=== PATIENT | male | born 1965 | race Caucasian/White ===

== ENCOUNTER 2020-05-04 05:53 | Observation (INO) ==
[2020-05-04] MEDS ORDERED: Isovue-370 500 ML BOTTLE IVP ONE (06:12)
[2020-05-04 06:34] LABS: INR 1.2
[2020-05-04 06:37] LABS: Activated Partial Thrombo Time 29.8 Seconds (26.0-36.0)
[2020-05-04 06:46] LABS: BUN/Creatinine Ratio 14 (6-26); Blood Urea Nitrogen 17 mg/dL (6-20); Calcium 9.6 mg/dL (8.6-10.3); Carbon Dioxide 21 mEq/L (23-29); Chloride 107 mEq/L (98-107); Glucose 134 mg/dL (70-105); Osmolality,Calculated 290 (280-300); Potassium 3.7 mEq/L (3.5-5.1); Sodium 138 mEq/L (136-145); eGFR For African Americans > 60 (> 60); eGFR For Non-African Americans > 60 (> 60)
[2020-05-04 06:48] LABS: Alanine Aminotransferase 23 Units/L (7-52); Albumin 3.2 g/dL (3.5-5.7); Albumin/Globulin Ratio 0.8 (1.1-2.2); Alkaline Phosphatase 157 Units/L (34-104); Aspartate Amino Transferase 42 Units/L (13-39); Bilirubin,Indirect 1.8 mg/dL (0.0-1.0); Bilirubin,Total 2.8 mg/dL (0.3-1.0); Ethanol < 10 mg/dL (Less than 10); Globulin 4.1 g/dL (2.4-3.5); Lipase 79 Units/L (11-82); Red Cell Distribution Width 15.6 % (11.5-14.5); Total Protein 7.3 g/dL (6.4-8.9); Troponin I < 0.03 ng/mL (< 0.04)
[2020-05-04 06:50] LABS: Basophils % 0.5 %; Eosinophils # 0.2 K/mcL (0.0-0.6); Eosinophils % 3.3 %; Hematocrit 34.1 % (37.5-50.1); Immature Granulocytes % 0.3 % (0-4); Immature Platelets 1.1 % (1.1-6.1); Lymphocytes # 1.6 K/mcL (0.6-4.6); Lymphocytes % 23.5 %; Mean Corpuscular HGB Conc 32.3 g/dL (31.6-35.5); Monocytes # 0.7 K/mcL (0.0-1.3); Neutrophils # 4.1 K/mcL (1.6-8.9); Platelet Count 77 K/mcL (140-400); Red Blood Count 3.79 M/mcL (4.19-5.50); Segmented Neutrophils % 61.4 %; White Blood Count 6.6 K/mcL (4.3-11.1)
[2020-05-04] MEDS ORDERED: Aspirin 325 MG TABLET PO ONE (06:56)
[2020-05-04] MEDS ORDERED: cefTRIAXone 1,000 MG in 0.9 % Sodium Chloride Mini Bag 100 ML IVPB ONE (06:58)
[2020-05-04] MEDS ORDERED: Azithromycin 500 MG in 0.9 % Sodium Chloride 250 ML IVPB ONE (06:58)
[2020-05-04] MEDS ORDERED: Dextrose Gel 15 GM/37.5 ML TUBE PO PRN ×2 (08:06)
[2020-05-04] MEDS ORDERED: D5% in Water 1,000 ML IVC PRN (08:06)
[2020-05-04] MEDS ORDERED: Naloxone 0.4 MG/ML INJ IVP PRN (08:06)
[2020-05-04] MEDS ORDERED: *HR* Dextrose 50 % in Water (Vial) 50 ML VIAL IVP PRN (08:06)
[2020-05-04] MEDS ORDERED: Acetaminophen 325 MG TABLET PO PRN (08:06)
[2020-05-04] MEDS ORDERED: Ondansetron 4 MG/2 ML VIAL IVP PRN (08:06)
[2020-05-04] MEDS ORDERED: Perflutren Lipid Microsphere 1.3 ML in 0.9 % Sodium Chloride 8.7 ML IVP PRN (08:13)
[2020-05-04] MEDS ORDERED: NON-FORMULARY MEDICATION 1 EACH EACH (Amlodipine Besylate 10 MG Tablet) PO SCH (09:00)
[2020-05-04 09:11] LABS: Amphetamine Screen,Urine Negative ng/mL (Cutoff=1000); Bacteria,Urine Few per hpf (None-Few); Barbiturate Screen,Urine Negative ng/mL (Cutoff=200); Benzodiazepines Screen,Urine Negative ng/mL (Cutoff=200); Bilirubin,Urine Negative (Negative); Blood,Urine Trace (Negative); Cannabinoid Screen,Urine Negative ng/mL (Cutoff = 50); Clarity,Urine Clear (Clear); Cocaine Screen,Urine Negative ng/mL (Cutoff= 300); Color,Urine Light-Yellow (Yellow); Glucose,Urine (UA) >=1000 mg/dL (Normal); Ketones,Urine Negative (Negative); Leukocyte Esterase,Urine Negative (Negative); Nitrite,Urine Negative (Negative); Opiate Screen,Urine Negative ng/mL (Cutoff=300); PH,Urine 7.5 pH Units (5.0-8.0); Phencyclidine Screen,Urine Negative ng/mL (Cutoff=25); Protein,Urine Trace mg/dL (Neg-Trace); Specific Gravity,Urine > 1.030 (1.010-1.025); Urobilinogen,Urine Normal (Normal)
[2020-05-04] MEDS: lisinopriL 20 MG TABLET PO SCH (11:56)
[2020-05-04] MEDS: Metoprolol XL (24 HR) Succ 50 MG TAB.ER.24H PO SCH (11:56)
[2020-05-04] MEDS: Lactulose Oral Soln 20 GM/30 ML UDC PO SCH ×4 (11:56→20:38)
[2020-05-04] MEDS: amLODIPine 5 MG TABLET PO SCH (11:57)
[2020-05-04] MEDS: Insulin LISPRO 300 UNITS/3 ML VIAL SUBQ SCH ×2 (11:59→15:51)
[2020-05-04 15:40] LABS: % Iron Saturation 25 % (20-55); Iron 94 mcg/dL (65-175); Transferrin 267 mg/dL (203-362)
[2020-05-04 15:57] LABS: Ferritin 51 ng/mL (20-250); Hepatitis B Surface Antigen Nonreactive (Nonreactive)
[2020-05-04 16:26] LABS: Hepatitis B Core IgM Nonreactive (Nonreactive); Hepatitis C Virus Antibody Nonreactive (Nonreactive)
[2020-05-04 22:32] LABS: Hepatitis A Antibody IgM Nonreactive (Nonreactive)
[2020-05-05 02:20] LABS: Basophils % 0.6 %; Monocytes % 13.2 %; Red Blood Count 3.34 M/mcL (4.19-5.50); Red Cell Distribution Width 15.9 % (11.5-14.5)
[2020-05-05 02:22] LABS: Eosinophils # 0.2 K/mcL (0.0-0.6); Eosinophils % 3.1 %; Hematocrit 29.5 % (37.5-50.1); Hemoglobin 9.8 g/dL (12.9-16.9); Immature Granulocytes % 0.4 % (0-4); Immature Platelets 1.1 % (1.1-6.1); Lymphocytes # 1.2 K/mcL (0.6-4.6); Lymphocytes % 22.2 %; Mean Corpuscular HGB Conc 33.2 g/dL (31.6-35.5); Mean Corpuscular Hemoglobin 29.3 pg (28.0-33.3); Mean Corpuscular Volume 88.3 fL (83.0-100.0); Mean Platelet Volume 9.3 fL (9.4-12.4); Monocytes # 0.7 K/mcL (0.0-1.3); Neutrophils # 3.2 K/mcL (1.6-8.9); Segmented Neutrophils % 60.5 %; White Blood Count 5.2 K/mcL (4.3-11.1)
[2020-05-05 02:25] LABS: Platelet Count 66 K/mcL (140-400)
[2020-05-05 02:39] LABS: BUN/Creatinine Ratio 16 (6-26); Blood Urea Nitrogen 19 mg/dL (6-20); Carbon Dioxide 20 mEq/L (23-29); Chloride 112 mEq/L (98-107); Chol/HDL Ratio 3.6 (0-4.9); Cholesterol 135 mg/dL (< 200); Glucose 105 mg/dL (70-105); HDL Cholesterol 37 mg/dL (40-59); LDL Cholesterol,Calculated 75 mg/dL (< 100); Magnesium 2.2 mg/dL (1.6-2.6); Osmolality,Calculated 295 (280-300); Potassium 3.9 mEq/L (3.5-5.1); Sodium 141 mEq/L (136-145); Triglycerides 117 mg/dL (< 150); eGFR For African Americans > 60 (> 60); eGFR For Non-African Americans > 60 (> 60)
[2020-05-05] MEDS: Insulin LISPRO 300 UNITS/3 ML VIAL SUBQ SCH ×3 (08:00→17:36)
[2020-05-05] MEDS ORDERED: cefTRIAXone 1,000 MG in Water for inj. (sterile) 10 ML IVP SCH (09:00)
[2020-05-05] MEDS: Metoprolol XL (24 HR) Succ 50 MG TAB.ER.24H PO SCH (10:56)
[2020-05-05] MEDS: lisinopriL 20 MG TABLET PO SCH ×2 (10:56→11:07)
[2020-05-05] MEDS: Lactulose Oral Soln 20 GM/30 ML UDC PO SCH ×4 (10:57→20:06)
[2020-05-05] MEDS: amLODIPine 5 MG TABLET PO SCH ×2 (10:57→11:07)
[2020-05-05] MEDS: Azithromycin 500 MG in 0.9 % Sodium Chloride 250 ML IVPB SCH (10:58)
[2020-05-05] MEDS ORDERED: Acetaminophen 325 MG TABLET PO PRN (15:13)
[2020-05-05] MEDS ORDERED: lisinopriL 20 MG TABLET PO SCH (15:35)
[2020-05-05] MEDS ORDERED: amLODIPine 5 MG TABLET PO SCH (15:35)
[2020-05-05] MEDS ORDERED: Vancomycin 2,000 MG/520 ML IV.SOLN IVPB ONE (15:40)
[2020-05-05] MEDS ORDERED: Ipratropium/Albuterol Neb 3 ML IH PRN (16:14)
[2020-05-05] MEDS ORDERED: Melatonin 3 MG TABLET PO PRN (16:14)
[2020-05-05] MEDS: Piperacillin/Tazobactam 3.375 GM in 0.9 % Sodium Chloride Mini Bag 100 ML IVPB SCH ×2 (17:30→23:48)
[2020-05-05] MEDS: Furosemide 20 MG TABLET PO SCH (17:30)
[2020-05-05 20:38] LABS: Adenovirus Not Detected (Not Detect); Bordetella Pertussis Not Detected (Not Detect); Chlamydophila pneumoniae Not Detected (Not Detect); Coronavirus 229E Not Detected (Not Detect); Coronavirus HKU1 Not Detected (Not Detect); Coronavirus NL63 Not Detected (Not Detect); Coronavirus OC43 Not Detected (Not Detect); Human Metapneumovirus Not Detected (Not Detect); Human Rhinovirus/Enterovirus Not Detected (Not Detect); Influenza A Subtype 2009 H1 Not Detected (Not Detect); Influenza B Not Detected (Not Detect); Mycoplasma pneumoniae Not Detected (Not Detect); Parainfluenza Virus 1 Not Detected (Not Detect); Parainfluenza Virus 2 Not Detected (Not Detect); Parainfluenza Virus 3 Not Detected (Not Detect); Parainfluenza Virus 4 Not Detected (Not Detect); Respiratory Syncytial Virus Not Detected (Not Detect); SARS-CoV-2 Not Detected (Not Detect)
[2020-05-05] MEDS ORDERED: Insulin LISPRO 300 UNITS/3 ML VIAL SUBQ SCH (21:00)
[2020-05-06 02:57] LABS: Basophils % 0.4 %; Eosinophils # 0.2 K/mcL (0.0-0.6); Eosinophils % 3.9 %; Hematocrit 28.6 % (37.5-50.1); Hemoglobin 9.3 g/dL (12.9-16.9); Immature Granulocytes % 0.2 % (0-4); Immature Platelets 1.2 % (1.1-6.1); Lymphocytes # 0.6 K/mcL (0.6-4.6); Lymphocytes % 12.9 %; Mean Corpuscular HGB Conc 32.5 g/dL (31.6-35.5); Mean Corpuscular Volume 89.1 fL (83.0-100.0); Mean Platelet Volume 9.4 fL (9.4-12.4); Monocytes # 0.5 K/mcL (0.0-1.3); Monocytes % 11.4 %; Neutrophils # 3.4 K/mcL (1.6-8.9); Platelet Count 57 K/mcL (140-400); Red Blood Count 3.21 M/mcL (4.19-5.50); Red Cell Distribution Width 15.9 % (11.5-14.5); Segmented Neutrophils % 71.2 %; White Blood Count 4.7 K/mcL (4.3-11.1)
[2020-05-06 03:15] LABS: Alanine Aminotransferase 18 Units/L (7-52); Albumin 2.7 g/dL (3.5-5.7); Albumin/Globulin Ratio 0.8 (1.1-2.2); Alkaline Phosphatase 118 Units/L (34-104); Aspartate Amino Transferase 36 Units/L (13-39); BUN/Creatinine Ratio 19 (6-26); Bilirubin,Total 2.6 mg/dL (0.3-1.0); Blood Urea Nitrogen 22 mg/dL (6-20); Calcium 8.5 mg/dL (8.6-10.3); Carbon Dioxide 20 mEq/L (23-29); Chloride 111 mEq/L (98-107); Globulin 3.2 g/dL (2.4-3.5); Glucose 100 mg/dL (70-105); Magnesium 2.1 mg/dL (1.6-2.6); Osmolality,Calculated 289 (280-300); Phosphorous 3.3 mg/dL (2.7-4.5); Potassium 3.8 mEq/L (3.5-5.1); Sodium 138 mEq/L (136-145); Total Protein 5.9 g/dL (6.4-8.9); eGFR For African Americans > 60 (> 60); eGFR For Non-African Americans > 60 (> 60)
[2020-05-06 03:19] LABS: Estimated Average Glucose 126 mg/dl
[2020-05-06 03:39] LABS: Folate 15.7 ng/mL (3.0-16.0)
[2020-05-06 04:39] LABS: INR 1.4
[2020-05-06] MEDS ORDERED: Vancomycin 1,750 MG/517.5 ML IV.SOLN IVPB SCH (05:00)
[2020-05-06] MEDS: Insulin LISPRO 300 UNITS/3 ML VIAL SUBQ SCH ×2 (08:01→12:40)
[2020-05-06] MEDS: Furosemide 20 MG TABLET PO SCH (08:10)
[2020-05-06] MEDS: Piperacillin/Tazobactam 3.375 GM in 0.9 % Sodium Chloride Mini Bag 100 ML IVPB SCH (08:11)
[2020-05-06] MEDS: Metoprolol XL (24 HR) Succ 50 MG TAB.ER.24H PO SCH (08:11)
[2020-05-06] MEDS: Lactulose Oral Soln 20 GM/30 ML UDC PO SCH ×2 (08:11→14:31)
[2020-05-06] MEDS: Azithromycin 500 MG in 0.9 % Sodium Chloride 250 ML IVPB SCH (08:12)
[2020-05-06] MEDS ORDERED: amLODIPine 5 MG TABLET PO SCH (09:00)
[2020-05-06] MEDS ORDERED: lisinopriL 20 MG TABLET PO SCH (09:00)
[2020-05-06] MEDS ORDERED: Multivit/Ca/Min/Fe/FA 1 TAB TABLET PO SCH (09:00)
[2020-05-06 12:14] VITALS: BP 111/53
[2020-05-07] MEDS ORDERED: lisinopriL 20 MG TABLET PO SCH (09:00)
[2020-05-07] MEDS ORDERED: Furosemide 40 MG TABLET PO SCH (09:00)
[2020-05-07 09:42] LABS: AFP Tumor Marker Non-Pregnant 4 ng/mL (0-9)
[2020-05-07 09:51] LABS: F-Actin (sm muscle) Ab IgG 9 Units (0-19)
[2020-05-07 11:01] LABS: ANA IgG by ELISA NONE DETECTED (None Detected)
[2020-05-11 22:45] LABS: C282Y Hemochromatosis Mutation NEGATIVE; H63D Hemochromatosis Mutation NEGATIVE; HFE Specimen Type WHOLE BLOOD; S65C Hemochromatosis Mutation NEGATIVE
== END 2020-05-06 14:41 | disposition home or self-care (01) ==
LOC: EMEROOARM 05:53 → 2NENU 05:53 → SUATTDRO 08:52 → 2NENU 09:52
PROVIDERS: ADMIT Internal Medicine; ATTEND Family Medicine

== ENCOUNTER 2020-10-15 11:04 | Inpatient (IN) ==
[2020-10-15] MEDS ORDERED: *HR* HYDROmorphone 2 MG/ML SYRINGE IVP ONE (13:20)
[2020-10-15] MEDS ORDERED: Ketorolac 15 MG/ML VIAL IVP ONE (13:20)
[2020-10-15 13:39] LABS: Hematocrit 30.4 % (37.5-50.1); Hemoglobin 9.9 g/dL (12.9-16.9); Immature Platelets 1.5 % (1.1-6.1); Mean Corpuscular HGB Conc 32.6 g/dL (31.6-35.5); Mean Corpuscular Hemoglobin 30.1 pg (28.0-33.3); Mean Corpuscular Volume 92.4 fL (83.0-100.0); Mean Platelet Volume 9.7 fL (9.4-12.4); Red Blood Count 3.29 M/mcL (4.19-5.50); Red Cell Distribution Width 17.4 % (11.5-14.5); White Blood Count 19.5 K/mcL (4.3-11.1)
[2020-10-15 13:41] LABS: Platelet Count 97 K/mcL (140-400)
[2020-10-15] MEDS ORDERED: Isovue-370 500 ML BOTTLE IVP ONE (13:56)
[2020-10-15 13:59] LABS: Albumin 2.9 g/dL (3.5-5.7); Albumin/Globulin Ratio 0.8 (1.1-2.2); Bilirubin,Direct 0.7 mg/dL (0.0-0.2); Bilirubin,Indirect 1.2 mg/dL (0.0-1.0); Bilirubin,Total 1.9 mg/dL (0.3-1.0); Calcium 8.4 mg/dL (8.6-10.3); Globulin 3.7 g/dL (2.4-3.5); Total Protein 6.6 g/dL (6.4-8.9); Troponin I 0.03 ng/mL (< 0.04)
[2020-10-15 14:02] LABS: Eosinophils # 0.2 K/mcL (0.0-0.6); Monocytes # 2.2 K/mcL (0.0-1.3); Neutrophils # 16.2 K/mcL (1.6-8.9); Platelet Estimate Decreased (Normal); Reactive Lymphocytes Present (Not Present)
[2020-10-15 14:03] LABS: Hypochromasia Present (Not Present)
[2020-10-15] MEDS ORDERED: Doxycycline 100 MG CAPSULE PO ONE (15:34)
[2020-10-15] MEDS ORDERED: cephALEXin 500 MG CAPSULE PO ONE (15:34)
[2020-10-15] MEDS ORDERED: Ringers Solution, Lactated 1,000 ML IVC ONE (15:39)
[2020-10-15] MEDS ORDERED: Cefepime HCl 1,000 MG in Water for inj. (sterile) 10 ML IVP SCH (15:40)
[2020-10-15] MEDS ORDERED: Doxycycline 100 MG CAPSULE PO SCH ×2 (15:40→21:00)
[2020-10-15] MEDS ORDERED: Ondansetron 4 MG/2 ML VIAL IVP PRN (16:52)
[2020-10-15] MEDS ORDERED: Naloxone 0.4 MG/ML INJ IVP PRN (16:52)
[2020-10-15] MEDS ORDERED: *HR* Dextrose 50 % in Water (Vial) 50 ML VIAL IVP PRN (16:55)
[2020-10-15] MEDS ORDERED: D5% in Water 1,000 ML IVC PRN (16:55)
[2020-10-15] MEDS ORDERED: Dextrose Gel 15 GM/37.5 ML TUBE PO PRN ×2 (16:55)
[2020-10-15] MEDS ORDERED: Ringers Solution, Lactated 1,000 ML IVC SCH (17:00)
[2020-10-15 17:33] LABS: Bacteria,Urine Few per hpf (None-Few); Bilirubin,Urine Negative (Negative); Blood,Urine Negative (Negative); Clarity,Urine Clear (Clear); Color,Urine Yellow (Yellow); Glucose,Urine (UA) 30 mg/dL (Normal); Ketones,Urine Negative (Negative); Leukocyte Esterase,Urine Small (Negative); Mucus,Urine Few per lpf (None-Few); Nitrite,Urine Negative (Negative); PH,Urine 5.5 pH Units (5.0-8.0); Protein,Urine Trace mg/dL (Neg-Trace); RBC,Urine 0-3 per hpf (0-3); Specific Gravity,Urine 1.022 (1.010-1.025); Squamous Epithelial Cell,Urine Few per hpf (None-Few); Urobilinogen,Urine Normal (Normal); WBC,Urine 15-30 per hpf (0-3)
[2020-10-15] MEDS: Ringers Solution, Lactated 1,000 ML IVC SCH (18:14)
[2020-10-15] MEDS: Insulin LISPRO 300 UNITS/3 ML VIAL SUBQ SCH (20:24)
[2020-10-16] MEDS: Ringers Solution, Lactated 1,000 ML IVC SCH ×3 (04:24→23:28)
[2020-10-16 04:57] LABS: Hemoglobin 9.5 g/dL (12.9-16.9); Mean Platelet Volume 9.2 fL (9.4-12.4); Red Cell Distribution Width 17.6 % (11.5-14.5)
[2020-10-16 04:59] LABS: Basophils # 0.1 K/mcL (0.0-0.2); Basophils % 0.3 %; Eosinophils # 0.2 K/mcL (0.0-0.6); Eosinophils % 0.9 %; Hematocrit 28.9 % (37.5-50.1); Immature Granulocytes % 2.8 % (0-4); Lymphocytes # 1.4 K/mcL (0.6-4.6); Lymphocytes % 7.2 %; Mean Corpuscular HGB Conc 32.9 g/dL (31.6-35.5); Mean Corpuscular Hemoglobin 30.3 pg (28.0-33.3); Monocytes # 1.8 K/mcL (0.0-1.3); Monocytes % 9.2 %; Neutrophils # 15.3 K/mcL (1.6-8.9); Platelet Count 109 K/mcL (140-400); Red Blood Count 3.14 M/mcL (4.19-5.50); Segmented Neutrophils % 79.6 %; White Blood Count 19.2 K/mcL (4.3-11.1)
[2020-10-16 05:18] LABS: Calcium 8.4 mg/dL (8.6-10.3); Magnesium 2.1 mg/dL (1.6-2.6); Potassium 4.5 mEq/L (3.5-5.1)
[2020-10-16] MEDS: Insulin LISPRO 300 UNITS/3 ML VIAL SUBQ SCH ×4 (07:10→20:28)
[2020-10-16] MEDS: cefTRIAXone 1,000 MG in 0.9 % Sodium Chloride Mini Bag 100 ML IVPB SCH (10:18)
[2020-10-16] MEDS: *HR* OxyCODONE Immed Rel 5 MG TABLET PO PRN ×2 (12:09→23:28)
[2020-10-17 05:11] LABS: Basophils # 0.1 K/mcL (0.0-0.2); Basophils % 0.3 %; Eosinophils # 0.2 K/mcL (0.0-0.6); Eosinophils % 1.3 %; Hemoglobin 8.9 g/dL (12.9-16.9); Immature Granulocytes % 2.1 % (0-4); Lymphocytes # 1.2 K/mcL (0.6-4.6); Lymphocytes % 8.4 %; Mean Corpuscular Hemoglobin 29.8 pg (28.0-33.3); Mean Corpuscular Volume 90.3 fL (83.0-100.0); Mean Platelet Volume 8.9 fL (9.4-12.4); Monocytes # 1.4 K/mcL (0.0-1.3); Monocytes % 9.6 %; Neutrophils # 11.3 K/mcL (1.6-8.9); Platelet Count 102 K/mcL (140-400); Red Blood Count 2.99 M/mcL (4.19-5.50); Red Cell Distribution Width 17.4 % (11.5-14.5); Segmented Neutrophils % 78.3 %; White Blood Count 14.4 K/mcL (4.3-11.1)
[2020-10-17 05:24] LABS: Calcium 8.2 mg/dL (8.6-10.3); Potassium 4.3 mEq/L (3.5-5.1)
[2020-10-17] MEDS: Insulin LISPRO 300 UNITS/3 ML VIAL SUBQ SCH ×4 (07:21→21:37)
[2020-10-17] MEDS: Aspirin Enteric Coated 81 MG Tablet PO SCH (07:28)
[2020-10-17] MEDS: cefTRIAXone 1,000 MG in 0.9 % Sodium Chloride Mini Bag 100 ML IVPB SCH (07:29)
[2020-10-17] MEDS: Ringers Solution, Lactated 1,000 ML IVC SCH (07:46)
[2020-10-17] MEDS: Lactulose Oral Soln 20 GM/30 ML UDC PO SCH ×2 (11:35→19:44)
[2020-10-17] MEDS: Piperacillin/Tazobactam 3.375 GM in 0.9 % Sodium Chloride Mini Bag 100 ML IVPB SCH ×2 (11:35→17:24)
[2020-10-17] MEDS: Vancomycin 2,000 MG/520 ML IV.SOLN IVPB SCH ×2 (12:26→22:41)
[2020-10-17] MEDS: *HR* Heparin 5,000 UNIT/ML VIAL SQ SCH (17:24)
[2020-10-17] MEDS: *HR* OxyCODONE Immed Rel 5 MG TABLET PO PRN (17:39)
[2020-10-18] MEDS: *HR* OxyCODONE Immed Rel 5 MG TABLET PO PRN ×3 (00:09→18:14)
[2020-10-18] MEDS: Piperacillin/Tazobactam 3.375 GM in 0.9 % Sodium Chloride Mini Bag 100 ML IVPB SCH ×3 (01:47→18:11)
[2020-10-18 05:38] LABS: Eosinophils % 1.7 %; Hemoglobin 8.5 g/dL (12.9-16.9)
[2020-10-18 05:40] LABS: Basophils # 0.1 K/mcL (0.0-0.2); Basophils % 0.4 %; Eosinophils # 0.2 K/mcL (0.0-0.6); Hematocrit 25.4 % (37.5-50.1); Immature Granulocytes % 1.5 % (0-4); Immature Platelets 0.7 % (1.1-6.1); Lymphocytes # 1.1 K/mcL (0.6-4.6); Lymphocytes % 9.3 %; Mean Corpuscular HGB Conc 33.5 g/dL (31.6-35.5); Mean Corpuscular Hemoglobin 30.2 pg (28.0-33.3); Mean Corpuscular Volume 90.4 fL (83.0-100.0); Mean Platelet Volume 8.9 fL (9.4-12.4); Monocytes # 1.4 K/mcL (0.0-1.3); Monocytes % 11.5 %; Neutrophils # 8.9 K/mcL (1.6-8.9); Platelet Count 105 K/mcL (140-400); Red Blood Count 2.81 M/mcL (4.19-5.50); Red Cell Distribution Width 17.4 % (11.5-14.5); Segmented Neutrophils % 75.6 %; White Blood Count 11.7 K/mcL (4.3-11.1)
[2020-10-18] MEDS: *HR* Heparin 5,000 UNIT/ML VIAL SQ SCH ×2 (05:48→18:11)
[2020-10-18 06:00] LABS: Magnesium 2.1 mg/dL (1.6-2.6); Potassium 4.1 mEq/L (3.5-5.1)
[2020-10-18] MEDS: amLODIPine 5 MG TABLET PO SCH (07:37)
[2020-10-18] MEDS: Lactulose Oral Soln 20 GM/30 ML UDC PO SCH ×2 (07:37→21:11)
[2020-10-18] MEDS: Aspirin Enteric Coated 81 MG Tablet PO SCH (07:38)
[2020-10-18] MEDS: Insulin LISPRO 300 UNITS/3 ML VIAL SUBQ SCH ×4 (07:39→21:06)
[2020-10-18] MEDS: Vancomycin 2,000 MG/520 ML IV.SOLN IVPB SCH (10:33)
[2020-10-18] MEDS ORDERED: Acetaminophen IV 1,000 MG/100 ML BAG IVPB ONE (20:33)
[2020-10-18] MEDS: Vancomycin 1,750 MG/517.5 ML IV.SOLN IVPB SCH (23:42)
[2020-10-19] MEDS: Piperacillin/Tazobactam 3.375 GM in 0.9 % Sodium Chloride Mini Bag 100 ML IVPB SCH ×3 (02:14→17:02)
[2020-10-19] MEDS: *HR* OxyCODONE Immed Rel 5 MG TABLET PO PRN ×2 (04:19→10:20)
[2020-10-19] MEDS: *HR* Heparin 5,000 UNIT/ML VIAL SQ SCH ×2 (04:20→17:01)
[2020-10-19 06:52] LABS: Basophils % 0.3 %; Eosinophils % 1.9 %; Hemoglobin 8.8 g/dL (12.9-16.9); Monocytes % 13.1 %; Red Cell Distribution Width 17.1 % (11.5-14.5)
[2020-10-19 06:54] LABS: Eosinophils # 0.2 K/mcL (0.0-0.6); Hematocrit 26.5 % (37.5-50.1); Immature Granulocytes % 2.3 % (0-4); Immature Platelets 1.3 % (1.1-6.1); Lymphocytes % 8.9 %; Mean Corpuscular HGB Conc 33.2 g/dL (31.6-35.5); Mean Corpuscular Volume 90.4 fL (83.0-100.0); Monocytes # 1.5 K/mcL (0.0-1.3); Neutrophils # 8.5 K/mcL (1.6-8.9); Platelet Count 101 K/mcL (140-400); Red Blood Count 2.93 M/mcL (4.19-5.50); Segmented Neutrophils % 73.5 %; White Blood Count 11.5 K/mcL (4.3-11.1)
[2020-10-19 07:16] LABS: BUN/Creatinine Ratio 21 (6-26); Blood Urea Nitrogen 30 mg/dL (6-20); Calcium 7.9 mg/dL (8.6-10.3); Carbon Dioxide 20 mEq/L (23-29); Chloride 104 mEq/L (98-107); Glucose 135 mg/dL (70-105); Magnesium 2.1 mg/dL (1.6-2.6); Osmolality,Calculated 278 (280-300); Phosphorous 2.6 mg/dL (2.7-4.5); Potassium 3.9 mEq/L (3.5-5.1); Sodium 130 mEq/L (136-145); eGFR For African Americans > 60 (> 60); eGFR For Non-African Americans 51 (> 60)
[2020-10-19] MEDS: Insulin LISPRO 300 UNITS/3 ML VIAL SUBQ SCH ×3 (07:39→17:00)
[2020-10-19] MEDS: Lactulose Oral Soln 20 GM/30 ML UDC PO SCH ×2 (07:40→20:58)
[2020-10-19] MEDS: Aspirin Enteric Coated 81 MG Tablet PO SCH (07:40)
[2020-10-19] MEDS: amLODIPine 5 MG TABLET PO SCH (07:41)
[2020-10-19] MEDS: Vancomycin 1,750 MG/517.5 ML IV.SOLN IVPB SCH (11:40)
[2020-10-19 11:41] LABS: Creatine Kinase 181 Units/L (30-223)
[2020-10-20] MEDS: Vancomycin 1,750 MG/517.5 ML IV.SOLN IVPB SCH (00:11)
[2020-10-20] MEDS: Insulin LISPRO 300 UNITS/3 ML VIAL SUBQ SCH ×5 (00:12→20:47)
[2020-10-20 01:56] LABS: Hematocrit 25.2 % (37.5-50.1)
[2020-10-20 01:58] LABS: Basophils % 0.3 %; Eosinophils # 0.3 K/mcL (0.0-0.6); Eosinophils % 2.5 %; Hemoglobin 8.5 g/dL (12.9-16.9); Immature Granulocytes % 2.2 % (0-4); Immature Platelets 1.1 % (1.1-6.1); Lymphocytes % 9.8 %; Mean Corpuscular HGB Conc 33.7 g/dL (31.6-35.5); Mean Corpuscular Hemoglobin 30.4 pg (28.0-33.3); Monocytes # 1.5 K/mcL (0.0-1.3); Neutrophils # 7.4 K/mcL (1.6-8.9); Platelet Count 105 K/mcL (140-400); Red Cell Distribution Width 16.9 % (11.5-14.5); Segmented Neutrophils % 71.2 %; White Blood Count 10.4 K/mcL (4.3-11.1)
[2020-10-20 02:07] LABS: BUN/Creatinine Ratio 17 (6-26); Blood Urea Nitrogen 23 mg/dL (6-20); Calcium 7.6 mg/dL (8.6-10.3); Carbon Dioxide 21 mEq/L (23-29); Chloride 105 mEq/L (98-107); Glucose 117 mg/dL (70-105); Magnesium 2.2 mg/dL (1.6-2.6); Osmolality,Calculated 275 (280-300); Phosphorous 2.6 mg/dL (2.7-4.5); Potassium 4.1 mEq/L (3.5-5.1); Sodium 130 mEq/L (136-145); eGFR For African Americans > 60 (> 60); eGFR For Non-African Americans 53 (> 60)
[2020-10-20] MEDS: Piperacillin/Tazobactam 3.375 GM in 0.9 % Sodium Chloride Mini Bag 100 ML IVPB SCH (02:37)
[2020-10-20] MEDS: *HR* OxyCODONE Immed Rel 5 MG TABLET PO PRN ×3 (02:37→16:41)
[2020-10-20] MEDS: *HR* Heparin 5,000 UNIT/ML VIAL SQ SCH ×2 (05:11→16:41)
[2020-10-20] MEDS: Aspirin Enteric Coated 81 MG Tablet PO SCH (08:43)
[2020-10-20] MEDS: amLODIPine 5 MG TABLET PO SCH (08:43)
[2020-10-20] MEDS: Lactulose Oral Soln 20 GM/30 ML UDC PO SCH ×2 (08:43→20:58)
[2020-10-20] MEDS: Furosemide 20 MG/2 ML VIAL IVP SCH ×2 (11:13→20:58)
[2020-10-20] MEDS: CeFAZolin 2,000 MG/120 ML BAG IVPB SCH (16:49)
[2020-10-21] MEDS: CeFAZolin 2,000 MG/120 ML BAG IVPB SCH ×3 (00:02→15:49)
[2020-10-21] MEDS: *HR* OxyCODONE Immed Rel 5 MG TABLET PO PRN ×3 (02:23→20:46)
[2020-10-21 03:20] LABS: Basophils % 0.2 %; Eosinophils # 0.3 K/mcL (0.0-0.6); Eosinophils % 2.3 %; Hematocrit 25.4 % (37.5-50.1); Hemoglobin 8.3 g/dL (12.9-16.9); Immature Platelets 1.4 % (1.1-6.1); Lymphocytes % 9.4 %; Mean Corpuscular HGB Conc 32.7 g/dL (31.6-35.5); Mean Corpuscular Hemoglobin 30.2 pg (28.0-33.3); Mean Corpuscular Volume 92.4 fL (83.0-100.0); Mean Platelet Volume 9.5 fL (9.4-12.4); Monocytes # 1.2 K/mcL (0.0-1.3); Monocytes % 11.4 %; Neutrophils # 8.3 K/mcL (1.6-8.9); Platelet Count 107 K/mcL (140-400); Red Blood Count 2.75 M/mcL (4.19-5.50); Red Cell Distribution Width 17.2 % (11.5-14.5); Segmented Neutrophils % 75.7 %; White Blood Count 10.9 K/mcL (4.3-11.1)
[2020-10-21 03:31] LABS: BUN/Creatinine Ratio 19 (6-26); Blood Urea Nitrogen 25 mg/dL (6-20); Calcium 7.9 mg/dL (8.6-10.3); Carbon Dioxide 21 mEq/L (23-29); Chloride 104 mEq/L (98-107); Glucose 124 mg/dL (70-105); Osmolality,Calculated 276 (280-300); Phosphorous 2.7 mg/dL (2.7-4.5); Potassium 4.1 mEq/L (3.5-5.1); Sodium 130 mEq/L (136-145); eGFR For African Americans > 60 (> 60); eGFR For Non-African Americans 57 (> 60)
[2020-10-21] MEDS: *HR* Heparin 5,000 UNIT/ML VIAL SQ SCH ×2 (05:31→17:27)
[2020-10-21] MEDS: Furosemide 20 MG/2 ML VIAL IVP SCH ×2 (07:12→20:46)
[2020-10-21] MEDS: Aspirin Enteric Coated 81 MG Tablet PO SCH (07:12)
[2020-10-21] MEDS: Lactulose Oral Soln 20 GM/30 ML UDC PO SCH ×2 (07:12→20:46)
[2020-10-21] MEDS: amLODIPine 5 MG TABLET PO SCH (07:14)
[2020-10-21] MEDS: Insulin LISPRO 300 UNITS/3 ML VIAL SUBQ SCH ×4 (08:09→20:39)
[2020-10-21] MEDS ORDERED: Perflutren Lipid Microsphere 1.3 ML in 0.9 % Sodium Chloride 8.7 ML IVP PRN (11:28)
[2020-10-22] MEDS: CeFAZolin 2,000 MG/120 ML BAG IVPB SCH ×3 (00:38→16:23)
[2020-10-22] MEDS: *HR* Heparin 5,000 UNIT/ML VIAL SQ SCH ×2 (05:57→17:56)
[2020-10-22] MEDS: Insulin LISPRO 300 UNITS/3 ML VIAL SUBQ SCH ×4 (07:21→20:30)
[2020-10-22] MEDS: Lactulose Oral Soln 20 GM/30 ML UDC PO SCH ×2 (10:13→21:07)
[2020-10-22] MEDS: Furosemide 20 MG/2 ML VIAL IVP SCH (10:14)
[2020-10-22] MEDS: amLODIPine 5 MG TABLET PO SCH (10:14)
[2020-10-22] MEDS: Aspirin Enteric Coated 81 MG Tablet PO SCH (10:14)
[2020-10-22] MEDS: Furosemide 40 MG TABLET PO SCH ×2 (12:38→16:23)
[2020-10-23] MEDS: CeFAZolin 2,000 MG/120 ML BAG IVPB SCH ×3 (00:56→15:41)
[2020-10-23] MEDS: *HR* Heparin 5,000 UNIT/ML VIAL SQ SCH ×2 (05:10→17:51)
[2020-10-23] MEDS: Aspirin Enteric Coated 81 MG Tablet PO SCH (09:33)
[2020-10-23] MEDS: amLODIPine 5 MG TABLET PO SCH (09:33)
[2020-10-23] MEDS: Insulin LISPRO 300 UNITS/3 ML VIAL SUBQ SCH ×4 (09:33→20:34)
[2020-10-23] MEDS: Lactulose Oral Soln 20 GM/30 ML UDC PO SCH ×2 (09:33→20:31)
[2020-10-23] MEDS: Furosemide 40 MG TABLET PO SCH ×3 (09:34→17:52)
[2020-10-23 10:09] LABS: BUN/Creatinine Ratio 18 (6-26); Blood Urea Nitrogen 23 mg/dL (6-20); Calcium 7.9 mg/dL (8.6-10.3); Carbon Dioxide 23 mEq/L (23-29); Chloride 104 mEq/L (98-107); Glucose 170 mg/dL (70-105); Osmolality,Calculated 282 (280-300); Potassium 4.1 mEq/L (3.5-5.1); Sodium 132 mEq/L (136-145); eGFR For African Americans > 60 (> 60); eGFR For Non-African Americans 58 (> 60)
[2020-10-23] MEDS: *HR* OxyCODONE Immed Rel 5 MG TABLET PO PRN (15:48)
[2020-10-24] MEDS: CeFAZolin 2,000 MG/120 ML BAG IVPB SCH ×3 (01:31→15:46)
[2020-10-24] MEDS: *HR* Heparin 5,000 UNIT/ML VIAL SQ SCH ×2 (05:46→17:09)
[2020-10-24 06:23] LABS: BUN/Creatinine Ratio 18 (6-26); Blood Urea Nitrogen 22 mg/dL (6-20); Calcium 7.9 mg/dL (8.6-10.3); Carbon Dioxide 25 mEq/L (23-29); Chloride 103 mEq/L (98-107); Glucose 109 mg/dL (70-105); Osmolality,Calculated 282 (280-300); Potassium 3.8 mEq/L (3.5-5.1); Sodium 134 mEq/L (136-145); eGFR For African Americans > 60 (> 60); eGFR For Non-African Americans 60 (> 60)
[2020-10-24] MEDS: Insulin LISPRO 300 UNITS/3 ML VIAL SUBQ SCH ×4 (07:48→21:14)
[2020-10-24] MEDS: Furosemide 40 MG TABLET PO SCH ×3 (07:49→15:46)
[2020-10-24] MEDS: Aspirin Enteric Coated 81 MG Tablet PO SCH (07:50)
[2020-10-24] MEDS: Lactulose Oral Soln 20 GM/30 ML UDC PO SCH ×2 (07:52→21:13)
[2020-10-24] MEDS: *HR* OxyCODONE Immed Rel 5 MG TABLET PO PRN ×2 (08:04→21:13)
[2020-10-25] MEDS: CeFAZolin 2,000 MG/120 ML BAG IVPB SCH ×3 (00:36→16:56)
[2020-10-25] MEDS: *HR* Heparin 5,000 UNIT/ML VIAL SQ SCH ×2 (05:57→16:57)
[2020-10-25] MEDS: *HR* OxyCODONE Immed Rel 5 MG TABLET PO PRN ×2 (05:57→17:00)
[2020-10-25 07:10] LABS: Basophils % 0.4 %; Eosinophils # 0.1 K/mcL (0.0-0.6); Eosinophils % 1.5 %; Hematocrit 24.1 % (37.5-50.1); Hemoglobin 7.9 g/dL (12.9-16.9); Immature Granulocytes % 0.5 % (0-4); Lymphocytes # 1.1 K/mcL (0.6-4.6); Lymphocytes % 13.9 %; Mean Corpuscular HGB Conc 32.8 g/dL (31.6-35.5); Mean Corpuscular Hemoglobin 30.2 pg (28.0-33.3); Mean Platelet Volume 10.2 fL (9.4-12.4); Monocytes % 12.8 %; Neutrophils # 5.5 K/mcL (1.6-8.9); Platelet Count 109 K/mcL (140-400); Red Blood Count 2.62 M/mcL (4.19-5.50); Red Cell Distribution Width 17.2 % (11.5-14.5); Segmented Neutrophils % 70.9 %; White Blood Count 7.8 K/mcL (4.3-11.1)
[2020-10-25 07:30] LABS: BUN/Creatinine Ratio 17 (6-26); Blood Urea Nitrogen 21 mg/dL (6-20); Carbon Dioxide 26 mEq/L (23-29); Chloride 103 mEq/L (98-107); Glucose 92 mg/dL (70-105); Osmolality,Calculated 279 (280-300); Potassium 3.8 mEq/L (3.5-5.1); Sodium 133 mEq/L (136-145); eGFR For African Americans > 60 (> 60); eGFR For Non-African Americans > 60 (> 60)
[2020-10-25] MEDS: Insulin LISPRO 300 UNITS/3 ML VIAL SUBQ SCH ×4 (07:53→21:45)
[2020-10-25] MEDS: Furosemide 40 MG TABLET PO SCH ×3 (07:55→16:57)
[2020-10-25] MEDS: Aspirin Enteric Coated 81 MG Tablet PO SCH (07:55)
[2020-10-25] MEDS: Lactulose Oral Soln 20 GM/30 ML UDC PO SCH ×2 (07:59→21:45)
[2020-10-25] MEDS ORDERED: Furosemide 40 MG TABLET PO SCH (12:30)
[2020-10-26] MEDS: CeFAZolin 2,000 MG/120 ML BAG IVPB SCH ×2 (01:03→08:47)
[2020-10-26] MEDS: *HR* OxyCODONE Immed Rel 5 MG TABLET PO PRN (01:03)
[2020-10-26] MEDS: *HR* Heparin 5,000 UNIT/ML VIAL SQ SCH (06:26)
[2020-10-26 06:28] LABS: BUN/Creatinine Ratio 16 (6-26); Blood Urea Nitrogen 20 mg/dL (6-20); Carbon Dioxide 27 mEq/L (23-29); Chloride 102 mEq/L (98-107); Glucose 96 mg/dL (70-105); Osmolality,Calculated 280 (280-300); Potassium 3.9 mEq/L (3.5-5.1); Sodium 134 mEq/L (136-145); eGFR For African Americans > 60 (> 60); eGFR For Non-African Americans > 60 (> 60)
[2020-10-26] MEDS: Insulin LISPRO 300 UNITS/3 ML VIAL SUBQ SCH ×2 (08:43→12:30)
[2020-10-26] MEDS: Furosemide 40 MG TABLET PO SCH ×2 (08:46→12:31)
[2020-10-26] MEDS: Aspirin Enteric Coated 81 MG Tablet PO SCH (08:47)
[2020-10-26] MEDS: Lactulose Oral Soln 20 GM/30 ML UDC PO SCH (08:47)
[2020-10-26 10:27] VITALS: BP 135/55; PULSE 72; TEMP 98.1; O2SAT 92
== END 2020-10-26 16:43 | disposition home or self-care (01) | DRG 871 ==
LOC: 3ANU 11:04 → EMEROOARM 11:04 → SUATTDRO 16:41 → 3ANU 17:30 → SUATTDRO 10-18 13:47
PROVIDERS: ADMIT Internal Medicine; ATTEND Hospitalist

== ENCOUNTER 2020-12-04 04:04 | Observation (INO) ==
[2020-12-04] MEDS ORDERED: Ondansetron ODT 4 MG TAB.RAPDIS SL ONE (04:58)
[2020-12-04] MEDS ORDERED: Ondansetron 4 MG/2 ML VIAL IVP ONE (05:14)
[2020-12-04 05:41] LABS: Hemoglobin 8.1 g/dL (12.9-16.9); Immature Granulocytes % 0.3 % (0-4); Red Cell Distribution Width 17.3 % (11.5-14.5); Segmented Neutrophils % 80.9 %
[2020-12-04 05:43] LABS: Basophils % 0.3 %; Eosinophils # 0.1 K/mcL (0.0-0.6); Eosinophils % 1.4 %; Hematocrit 24.9 % (37.5-50.1); Immature Platelets 1.3 % (1.1-6.1); Lymphocytes # 0.4 K/mcL (0.6-4.6); Lymphocytes % 7.5 %; Mean Corpuscular HGB Conc 32.5 g/dL (31.6-35.5); Mean Corpuscular Hemoglobin 30.7 pg (28.0-33.3); Mean Corpuscular Volume 94.3 fL (83.0-100.0); Mean Platelet Volume 9.5 fL (9.4-12.4); Monocytes # 0.6 K/mcL (0.0-1.3); Monocytes % 9.6 %; Neutrophils # 4.6 K/mcL (1.6-8.9); Red Blood Count 2.64 M/mcL (4.19-5.50); White Blood Count 5.7 K/mcL (4.3-11.1)
[2020-12-04 05:48] LABS: Platelet Count 70 K/mcL (140-400)
[2020-12-04] MEDS ORDERED: Morphine Sulfate 2 MG/ML SYRINGE IVP ONE (05:55)
[2020-12-04 06:23] LABS: Albumin/Globulin Ratio 0.8 (1.1-2.2); Bilirubin,Direct 0.6 mg/dL (0.0-0.2); Bilirubin,Indirect 1.1 mg/dL (0.0-1.0); Bilirubin,Total 1.7 mg/dL (0.3-1.0); Calcium 8.8 mg/dL (8.6-10.3); Potassium 4.2 mEq/L (3.5-5.1)
[2020-12-04 06:37] LABS: Troponin I 0.04 ng/mL (< 0.04)
[2020-12-04] MEDS ORDERED: Morphine Sulfate 2 MG/ML SYRINGE IVP STA (07:27)
[2020-12-04 07:45] LABS: INR 1.3
[2020-12-04 07:50] LABS: Bacteria,Urine Few per hpf (None-Few); Bilirubin,Urine Negative (Negative); Blood,Urine Large (Negative); Clarity,Urine Turbid (Clear); Color,Urine Yellow (Yellow); Glucose,Urine (UA) Normal (Normal); Ketones,Urine Negative (Negative); Leukocyte Esterase,Urine Negative (Negative); Mucus,Urine Few per lpf (None-Few); Nitrite,Urine Negative (Negative); PH,Urine 5.5 pH Units (5.0-8.0); Protein,Urine 50 mg/dL (Neg-Trace); RBC,Urine 50-100 per hpf (0-3); Urobilinogen,Urine Normal (Normal); WBC,Urine 15-30 per hpf (0-3)
[2020-12-04] MEDS ORDERED: *HR* Heparin 5,000 UNIT/ML VIAL IVP PRN ×2 (08:25)
[2020-12-04] MEDS ORDERED: *HR* Heparin 5,000 UNIT/ML VIAL IVP ONE (08:25)
[2020-12-04 08:56] LABS: Heparin anti-factor XA UFH < 0.04 IU/mL (0.30-0.70)
[2020-12-04 08:57] LABS: INR 1.3; Prothrombin Time 14.6 Seconds (9.4-12.1)
[2020-12-04] MEDS: Heparin 25,000UNIT/250ML 1/2NS 25,000 UNIT/250 ML IV.SOLN IVC SCH (09:38)
[2020-12-04 09:46] LABS: Hemoglobin 7.9 g/dL (12.9-16.9); Mean Platelet Volume 9.6 fL (9.4-12.4); Red Cell Distribution Width 17.1 % (11.5-14.5)
[2020-12-04 09:48] LABS: Hematocrit 24.7 % (37.5-50.1); Immature Platelets 1.4 % (1.1-6.1); Mean Corpuscular Hemoglobin 30.2 pg (28.0-33.3); Mean Corpuscular Volume 94.3 fL (83.0-100.0); Red Blood Count 2.62 M/mcL (4.19-5.50); White Blood Count 5.4 K/mcL (4.3-11.1)
[2020-12-04] MEDS ORDERED: Naloxone 0.4 MG/ML INJ IVP PRN (09:49)
[2020-12-04] MEDS ORDERED: Ondansetron 4 MG/2 ML VIAL IVP PRN (09:49)
[2020-12-04] MEDS ORDERED: Dextrose Gel 15 GM/37.5 ML TUBE PO PRN ×2 (10:13)
[2020-12-04] MEDS ORDERED: *HR* Dextrose 50 % in Water (Syg) 50 ML SYRINGE IVP PRN (10:13)
[2020-12-04] MEDS ORDERED: D5% in Water 1,000 ML IVC PRN (10:13)
[2020-12-04] MEDS: Aspirin Enteric Coated 81 MG Tablet PO SCH (12:03)
[2020-12-04] MEDS: Insulin LISPRO 300 UNITS/3 ML VIAL SUBQ SCH ×2 (12:03→20:13)
[2020-12-04] MEDS: cefTRIAXone 1,000 MG in Water for inj. (sterile) 10 ML IVP SCH (12:03)
[2020-12-04 15:13] LABS: Estimated Average Glucose 131 mg/dl; Hemoglobin A1C 6.2 %
[2020-12-04] MEDS: *HR* FentaNYL (PF) 100 MCG/2 ML VIAL IVP PRN ×2 (16:46→23:13)
[2020-12-04] MEDS: Albumin 25% 25gram/100mL 25 GM/100 ML IV.SOLN IVPB SCH ×2 (21:21→23:09)
[2020-12-05 01:04] LABS: Basophils % 0.1 %; Hematocrit 22.3 % (37.5-50.1); Hemoglobin 7.4 g/dL (12.9-16.9); Mean Corpuscular HGB Conc 33.2 g/dL (31.6-35.5); Mean Corpuscular Hemoglobin 31.2 pg (28.0-33.3); Mean Corpuscular Volume 94.1 fL (83.0-100.0); Red Blood Count 2.37 M/mcL (4.19-5.50); Red Cell Distribution Width 17.3 % (11.5-14.5)
[2020-12-05 01:06] LABS: Eosinophils # 0.1 K/mcL (0.0-0.6); Immature Granulocytes % 0.5 % (0-4); Immature Platelets 0.7 % (1.1-6.1); Lymphocytes # 0.7 K/mcL (0.6-4.6); Lymphocytes % 8.2 %; Mean Platelet Volume 10.1 fL (9.4-12.4); Monocytes # 1.1 K/mcL (0.0-1.3); Neutrophils # 6.9 K/mcL (1.6-8.9); Segmented Neutrophils % 78.2 %; White Blood Count 8.8 K/mcL (4.3-11.1)
[2020-12-05 01:08] LABS: Albumin 2.7 g/dL (3.5-5.7); Albumin/Globulin Ratio 0.7 (1.1-2.2); Bilirubin,Total 2.5 mg/dL (0.3-1.0); Calcium 8.4 mg/dL (8.6-10.3); Globulin 3.8 g/dL (2.4-3.5); Potassium 4.6 mEq/L (3.5-5.1); Total Protein 6.5 g/dL (6.4-8.9)
[2020-12-05 01:12] LABS: Platelet Count 57 K/mcL (140-400)
[2020-12-05] MEDS: Insulin LISPRO 300 UNITS/3 ML VIAL SUBQ SCH ×4 (01:36→18:35)
[2020-12-05] MEDS: Heparin 25,000UNIT/250ML 1/2NS 25,000 UNIT/250 ML IV.SOLN IVC SCH (05:40)
[2020-12-05] MEDS: Aspirin Enteric Coated 81 MG Tablet PO SCH (08:27)
[2020-12-05] MEDS: Albumin 25% 25gram/100mL 25 GM/100 ML IV.SOLN IVPB SCH ×2 (08:27→17:21)
[2020-12-05] MEDS ORDERED: Saline Nasal Spray 44 ML BOTTLE NS PRN (10:23)
[2020-12-05 12:13] LABS: Hemoglobin 7.1 g/dL (12.9-16.9); Mean Corpuscular Hemoglobin 30.5 pg (28.0-33.3); Mean Platelet Volume 9.9 fL (9.4-12.4); Red Blood Count 2.33 M/mcL (4.19-5.50)
[2020-12-05 12:15] LABS: Hematocrit 22.5 % (37.5-50.1); Immature Platelets 1.6 % (1.1-6.1); Mean Corpuscular HGB Conc 31.6 g/dL (31.6-35.5); Mean Corpuscular Volume 96.6 fL (83.0-100.0); Red Cell Distribution Width 17.5 % (11.5-14.5); White Blood Count 7.3 K/mcL (4.3-11.1)
[2020-12-05] MEDS: cefTRIAXone 1,000 MG in Water for inj. (sterile) 10 ML IVP SCH (12:37)
[2020-12-05 15:05] LABS: Bacteria,Urine Moderate per hpf (None-Few); Bilirubin,Urine Negative (Negative); Blood,Urine Large (Negative); Clarity,Urine Ex.Turbid (Clear); Color,Urine Light-Orange (Yellow); Glucose,Urine (UA) Normal (Normal); Ketones,Urine Negative (Negative); Leukocyte Esterase,Urine Negative (Negative); Mucus,Urine Few per lpf (None-Few); Nitrite,Urine Negative (Negative); PH,Urine 5.5 pH Units (5.0-8.0); Protein,Urine 50 mg/dL (Neg-Trace); RBC,Urine 50-100 per hpf (0-3); Specific Gravity,Urine 1.017 (1.010-1.025); Urobilinogen,Urine Normal (Normal); WBC,Urine 15-30 per hpf (0-3)
[2020-12-05 15:24] LABS: Protein/Creatinine Ratio,Urine 0.42 mg/mg (0.00-0.20); Sodium, Urine 26.9 mEq/L
[2020-12-05] MEDS: *HR* Heparin 5,000 UNIT/ML VIAL SQ SCH (17:21)
[2020-12-05 20:07] LABS: Hemoglobin 6.6 g/dL (12.9-16.9)
[2020-12-05 20:09] LABS: Basophils % 0.3 %; Eosinophils # 0.1 K/mcL (0.0-0.6); Eosinophils % 1.8 %; Hematocrit 20.4 % (37.5-50.1); Immature Granulocytes % 0.3 % (0-4); Immature Platelets 1.7 % (1.1-6.1); Lymphocytes # 0.7 K/mcL (0.6-4.6); Mean Corpuscular HGB Conc 32.4 g/dL (31.6-35.5); Mean Corpuscular Hemoglobin 30.7 pg (28.0-33.3); Mean Corpuscular Volume 94.9 fL (83.0-100.0); Mean Platelet Volume 9.9 fL (9.4-12.4); Monocytes # 0.7 K/mcL (0.0-1.3); Monocytes % 11.4 %; Red Blood Count 2.15 M/mcL (4.19-5.50); Red Cell Distribution Width 17.3 % (11.5-14.5); Segmented Neutrophils % 75.2 %; White Blood Count 6.2 K/mcL (4.3-11.1)
[2020-12-05 20:12] LABS: Neutrophils # 4.7 K/mcL (1.6-8.9); Platelet Count 44 K/mcL (140-400)
[2020-12-06] MEDS: Albumin 25% 25gram/100mL 25 GM/100 ML IV.SOLN IVPB SCH ×3 (01:06→16:45)
[2020-12-06] MEDS: Insulin LISPRO 300 UNITS/3 ML VIAL SUBQ SCH ×4 (01:13→17:04)
[2020-12-06] MEDS: *HR* Heparin 5,000 UNIT/ML VIAL SQ SCH ×2 (06:04→16:45)
[2020-12-06] MEDS: Aspirin Enteric Coated 81 MG Tablet PO SCH (08:58)
[2020-12-06 11:38] LABS: Basophils % 0.2 %; Eosinophils # 0.1 K/mcL (0.0-0.6); Eosinophils % 2.2 %; Hematocrit 21.4 % (37.5-50.1); Hemoglobin 7.1 g/dL (12.9-16.9); Immature Granulocytes % 0.3 % (0-4); Lymphocytes # 0.7 K/mcL (0.6-4.6); Lymphocytes % 11.4 %; Mean Corpuscular HGB Conc 33.2 g/dL (31.6-35.5); Mean Corpuscular Hemoglobin 30.7 pg (28.0-33.3); Mean Corpuscular Volume 92.6 fL (83.0-100.0); Mean Platelet Volume 9.8 fL (9.4-12.4); Monocytes # 0.7 K/mcL (0.0-1.3); Monocytes % 11.1 %; Neutrophils # 4.9 K/mcL (1.6-8.9); Red Blood Count 2.31 M/mcL (4.19-5.50); Red Cell Distribution Width 16.8 % (11.5-14.5); Segmented Neutrophils % 74.8 %; White Blood Count 6.5 K/mcL (4.3-11.1)
[2020-12-06 11:40] LABS: Platelet Count 50 K/mcL (140-400)
[2020-12-06 11:56] LABS: Calcium 8.1 mg/dL (8.6-10.3); Potassium 4.3 mEq/L (3.5-5.1)
[2020-12-06 11:57] LABS: Complement C3 66 mg/dL (87-200)
[2020-12-06] MEDS: cefTRIAXone 1,000 MG in Water for inj. (sterile) 10 ML IVP SCH (12:00)
[2020-12-06] MEDS: Acetaminophen 325 MG TABLET PO PRN ×2 (12:09→20:24)
[2020-12-06 18:08] LABS: Basophils % 0.3 %; Eosinophils # 0.2 K/mcL (0.0-0.6); Eosinophils % 2.2 %; Hematocrit 21.2 % (37.5-50.1); Hemoglobin 7.5 g/dL (12.9-16.9); Immature Granulocytes % 1.7 % (0-4); Lymphocytes % 13.1 %; Mean Corpuscular HGB Conc 35.4 g/dL (31.6-35.5); Mean Corpuscular Hemoglobin 32.1 pg (28.0-33.3); Mean Corpuscular Volume 90.6 fL (83.0-100.0); Mean Platelet Volume 10.2 fL (9.4-12.4); Monocytes # 1.1 K/mcL (0.0-1.3); Monocytes % 14.1 %; Neutrophils # 5.2 K/mcL (1.6-8.9); Red Blood Count 2.34 M/mcL (4.19-5.50); Red Cell Distribution Width 16.8 % (11.5-14.5); Segmented Neutrophils % 68.6 %; White Blood Count 7.6 K/mcL (4.3-11.1)
[2020-12-06 18:10] LABS: Platelet Count 51 K/mcL (140-400)
[2020-12-07 01:21] LABS: Basophils % 0.4 %; Eosinophils # 0.1 K/mcL (0.0-0.6); Eosinophils % 2.6 %; Hematocrit 19.7 % (37.5-50.1); Hemoglobin 6.7 g/dL (12.9-16.9); Immature Granulocytes % 0.4 % (0-4); Immature Platelets 1.9 % (1.1-6.1); Lymphocytes # 0.7 K/mcL (0.6-4.6); Lymphocytes % 14.8 %; Mean Corpuscular Hemoglobin 31.6 pg (28.0-33.3); Mean Corpuscular Volume 92.9 fL (83.0-100.0); Mean Platelet Volume 10.1 fL (9.4-12.4); Monocytes # 0.6 K/mcL (0.0-1.3); Monocytes % 12.4 %; Neutrophils # 3.5 K/mcL (1.6-8.9); Red Blood Count 2.12 M/mcL (4.19-5.50); Red Cell Distribution Width 16.8 % (11.5-14.5); Segmented Neutrophils % 69.4 %
[2020-12-07 01:22] LABS: Platelet Count 52 K/mcL (140-400)
[2020-12-07 01:39] LABS: Calcium 8.1 mg/dL (8.6-10.3); Potassium 4.1 mEq/L (3.5-5.1)
[2020-12-07] MEDS: Albumin 25% 25gram/100mL 25 GM/100 ML IV.SOLN IVPB SCH ×2 (01:40→09:11)
[2020-12-07] MEDS: *HR* Heparin 5,000 UNIT/ML VIAL SQ SCH (04:17)
[2020-12-07 07:20] VITALS: BP 130/65; PULSE 69; TEMP 98.5; O2SAT 95
[2020-12-07] MEDS ORDERED: Insulin LISPRO 300 UNITS/3 ML VIAL SUBQ SCH (07:30)
[2020-12-07] MEDS: Aspirin Enteric Coated 81 MG Tablet PO SCH (09:11)
[2020-12-07 09:33] LABS: Hematocrit 23.7 % (37.5-50.1)
[2020-12-08 21:57] LABS: Lambda Qnt Free Light Chains 54.66 mg/L (5.71-26.30)
[2020-12-09 14:40] LABS: Kappa Qnt Free Light Chains 87.26 mg/L (3.30-19.40)
[2020-12-09 14:49] LABS: ANA IgG by ELISA NONE DETECTED (None Detected)
[2020-12-10 15:00] LABS: ANCA IFA Titer 1:40 (<1:20)
[2020-12-10 15:48] LABS: ANCA IFA Pattern ATYPICAL P-ANCA (None Detected); Serine Protease-3 Antibody 1 AU/mL (0-19)
[2020-12-10 20:45] LABS: Alpha 2 Globulin (PEP) 0.46 g/dL (0.48-1.05); Beta Globulin (PEP) 0.61 g/dL (0.48-1.10)
[2020-12-11 14:46] LABS: IFE Reflexed NOT DONE
== END 2020-12-07 11:02 | disposition home or self-care (01) ==
LOC: 3BNU 04:04 → EMEROOARM 04:04 → SUATTDRO 09:34 → 3BNU 11:17
PROVIDERS: ADMIT General Practice; ATTEND Internal Medicine